=== PATIENT | female | born 1980 | race Caucasian/White ===

== ENCOUNTER 2023-07-26 15:25 | Emergency (ER) | payer BC, SELFPAY ==
[2023-07-26 15:32] VITALS: BP 147/90; PULSE 108; RESP 18; TEMP 37.1; O2SAT 100; BMI 28.3
--- NOTE | 2023-07-26 15:46 | ED_ITS ---
HPI - General Adult General Chief complaint: Fever Stated complaint: FEVER/PAIN Time Seen by Provider: 07/26/23 15:31 Source: patient Mode of arrival: walk-in History of Present Illness HPI narrative: patient is a 43-year-old female presents to the emergency department for the evaluation of pain and swelling to the right medial buttock. Patient states for the last week she has had intermittent fevers. She has had no other associated symptoms of cough, congestion, urinary symptoms or vomiting or diarrhea. She states yesterday she had a temperature of 102.0 Fahrenheit. She states several days ago she noted vaginal swelling and discharge and was treated with Monistat and Diflucan for a yeast infection. She states her symptoms are significantly better but she continues to have fevers and today while sitting, she noted pain in the buttock associated with redness and firmness, her telemedicine physician referred her to the Emergency Room for possible cellulitis. She is not concerned for . Related Data Previous Rx's Medication Instructions Recorded ciprofloxacin HCl 500 mg tablet 500 mg PO BID #20 tabs 07/26/23 (Cipro) fluconazole 150 mg tablet 150 mg PO QWEEK 1 day #2 tabs 07/26/23 metronidazole 500 mg tablet 500 mg PO Q12H 10 days #20 tabs 07/26/23 ondansetron 4 mg disintegrating 4 mg PO Q6H PRN nausea and 07/26/23 tablet vomiting #12 tabs Allergies Allergy/AdvReac Type Severity Reaction Status Date / Time Sulfa (Sulfonamide Allergy Severe Rash Verified 07/26/23 15:37 Antibiotics) Review of Systems ROS Constitutional Denies: fever or chills Ears, nose, mouth, and throat Denies: throat pain Cardiovascular Denies: chest pain Respiratory Denies: shortness of breath or cough Gastrointestinal Denies: abdominal pain, nausea, vomiting or diarrhea Genitourinary Denies: painful urination Musculoskeletal Denies: back pain Integumentary/Breast Reports: redness, skin pain, skin tenderness and skin swelling; Denies: rash Neurological Denies: headache Hematologic/Lymphatic Denies: easy bruising Exam Narrative Exam Narrative: Gen.: Awake, alert, in no distress Head: Normocephalic, atraumatic ENT: Moist mucous membranes Respiratory: No respiratory distress Extremities: Moves extremities equally rectal exam performed with Ashley Olmos RN at bedside throughout the duration of the exam. Patient with white cream, Monistat in the buttock area and right medial buttock is indurated and erythematous. There is no visible perirectal or rectal abscess. Right medial buttock with multiple small breaks in the skin although there is no deep wound or active drainage. Psych: Normal mood and affect Neuro: No focal neuro deficit Skin: Warm, dry, intact Constitutional Vital Signs, click to edit/add: Last Vital Signs Temp 98.8 F 07/26/23 15:32 Pulse 108 H 07/26/23 15:32 Resp 18 07/26/23 15:32 BP 147/90 H 07/26/23 15:32 Pulse Ox 100 07/26/23 15:32 O2 Del Method Room Air 07/26/23 15:32 Course Vital Signs Vital signs: Vital Signs Temperature 98.8 F 07/26/23 15:32 Pulse Rate 108 H 07/26/23 15:32 Respiratory Rate 18 07/26/23 15:32 Blood Pressure 147/90 H 07/26/23 15:32 Pulse Oximetry 100 07/26/23 15:32 Oxygen Delivery Method Room Air 07/26/23 15:32 Temperature 98.8 F 07/26/23 15:32 Pulse Rate 108 H 07/26/23 15:32 Respiratory Rate 18 07/26/23 15:32 Blood Pressure 147/90 H 07/26/23 15:32 Pulse Oximetry 100 07/26/23 15:32 Oxygen Delivery Method Room Air 07/26/23 15:32 Medical Decision Making [facility] Narrative Medical decision making narrative: patient with stable vital signs in the Emergency Room, exam of the buttocks is consistent with early cellulitis although there is no visible abscess or active drainage. Lab studies are unremarkable, no evidence of sepsis, negative urine specimen, negative Covid and influenza screens. Patient with no other focal medical complaints in the Emergency Room. She'll be treated with antibiotics and Diflucan for home. follow-up with PCP and return to the Emergency Room if symptoms change or worsen. Medical Records Medical records reviewed: Yes I reviewed the patient's medical records Lab Data Lab results reviewed: Yes I reviewed the patient's lab results Labs: Lab Results 07/26/23 07/26/23 07/26/23 Range/Units 15:46 16:01 16:38 WBC 10.8 (4.0-11.0) 10^3/uL RBC 3.91 L (4.20-5.40) 10^6/uL Hgb 11.3 L (12.0-16.0) g/dL Hct 35.1 L (36.0-48.0) % MCV 89.8 (81.0-99.0) fL MCH 28.9 (26.7-34.0) pg MCHC 32.2 (29.9-35.2) g/dL RDW 12.3 (11.0-15.0) % Plt Count 394 (150-450) 10^3/uL MPV 9.5 (9.5-13.5) fL Neut % (Auto) 82.4 H (43.0-75.0) % Lymph % (Auto) 10.6 L (20.5-60.0) % Coal % (Auto) 5.5 (1.7-12.0) % Eos % (Auto) 0.4 L (0.9-7.0) % Baso % (Auto) 0.5 (0.2-2.0) % Neut # (Auto) 8.9 H (1.4-6.5) 10^3/uL Lymph # (Auto) 1.2 (1.2-3.8) 10^3/uL Coal # (Auto) 0.6 (0.3-0.8) 10^3/uL Eos # (Auto) 0.0 (0.0-0.7) 10^3/uL Baso # (Auto) 0.1 (0.0-0.1) 10^3/uL Abs Immat Gran (auto) 0.06 H (0.00-0.03) 10^3/uL Imm/Tot Granulo (auto) 0.6 H (0.0-0.5) % Sodium 137 (136-145) mmol/L Potassium 3.4 L (3.5-5.1) mmol/L Chloride 100 (98-107) mmol/L Carbon Dioxide 27.0 (21.0-32.0) mmol/L Anion Gap 13.4 BUN 8.0 (7.0-18.0) mg/dL Creatinine 0.97 (0.55-1.02) mg/dL Est GFR ( Amer) >60 (>=60) Est GFR (Non-Af Amer) >60 (>=60) BUN/Creatinine Ratio 8.2 Glucose 105 (74-106) mg/dL Lactate 0.8 (0.4-2.0) mmol/L Calcium 9.2 (8.5-10.1) mg/dL Total Bilirubin 0.3 (0.2-1.0) mg/dL AST <5 L (15-37) U/L ALT 12 L (14-59) U/L Alkaline Phosphatase 49 (46-116) U/L Total Protein 7.4 (6.4-8.2) g/dL Albumin 3.1 L (3.4-5.0) g/dL Globulin 4.3 g/dL Albumin/Globulin Ratio 0.7 Urine Color Lt. yellow (YELLOW) Urine Clarity Clear (CLEAR) Urine pH 6.0 (5.0-9.0) Ur Specific [place] <=1.005 A (1.005-1.025) Urine Protein Negative (NEG/TRACE) mg/dL Urine Glucose (UA) Negative (NEGATIVE) mg/dL Urine Ketones Negative (NEGATIVE) mg/dL Urine Occult Blood Small A (NEGATIVE) Urine Nitrite Negative (NEGATIVE) Urine Bilirubin Negative (NEGATIVE) Urine Urobilinogen 1.0 (0.2-1.0) EU/dL Ur Leukocyte Esterase Small A (NEGATIVE) Urine RBC None seen (0-2) #/HPF Urine WBC None seen (NONE SEEN) #/HPF Ur Squamous Epith Cells Rare (NONE/RARE) #/LPF Urine Crystals None seen (None Seen) #/HPF Urine Bacteria None seen (NONE SEEN) #/HPF Urine Casts None seen (NONE SEEN) #/LPF Urine Mucus None seen (NONE SEEN) Ur Culture Indicated? No SARS-CoV-2 (PCR) Negative (NEGATIVE) Influenza Type A Ag Negative Influenza Type B Ag Negative Discharge Plan Discharge Chief Complaint: Fever Clinical Impression: Cellulitis Patient Disposition: Home, Self-Care Time of Disposition Decision: 17:13 Condition: Good Prescriptions / Home Meds: New metronidazole 500 mg tablet 500 mg PO Q12H 10 Days Qty: 20 0RF ciprofloxacin HCl [Cipro] 500 mg tablet 500 mg PO BID Qty: 20 0RF ondansetron 4 mg tablet,disintegrating 4 mg PO Q6H PRN (Reason: nausea and vomiting) Qty: 12 0RF fluconazole 150 mg tablet 150 mg PO QWEEK 1 Days Qty: 2 0RF Rx Instructions: To be taken at the beginning and end of antibiotic course Instructions: Cellulitis (ED), Warm Compress or Soak (ED) Stand Alone Forms: Portal Instructions Referrals: RUTH NUÑEZ [Primary Care Provider] - 1 week Discharge Date/Time: 07/26/23 17:31
[2023-07-26 16:12] LABS: Basophils Absolute Auto 0.1 10^3/uL (0.0-0.1); Basophils Percent Auto 0.5 % (0.2-2.0); Eosinophils Percent Auto 0.4 % (0.9-7.0); Hematocrit 35.1 % (36.0-48.0); Hemoglobin 11.3 g/dL (12.0-16.0); Immature Granulocytes Abs Auto 0.06 10^3/uL (0.00-0.03); Immature Granulocytes Pct Auto 0.6 % (0.0-0.5); Lymphocytes Absolute Auto 1.2 10^3/uL (1.2-3.8); Lymphocytes Percent Auto 10.6 % (20.5-60.0); Mean Corpuscular HGB Conc 32.2 g/dL (29.9-35.2); Mean Corpuscular Hemoglobin 28.9 pg (26.7-34.0); Mean Corpuscular Volume 89.8 fL (81.0-99.0); Mean Platelet Volume 9.5 fL (9.5-13.5); Monocytes Absolute Auto 0.6 10^3/uL (0.3-0.8); Monocytes Percent Auto 5.5 % (1.7-12.0); Neutrophils Absolute Auto 8.9 10^3/uL (1.4-6.5); Neutrophils Percent Auto 82.4 % (43.0-75.0); Platelet Count 394 10^3/uL (150-450); Red Blood Count 3.91 10^6/uL (4.20-5.40); Red Cell Distribution Width 12.3 % (11.0-15.0); White Blood Count 10.8 10^3/uL (4.0-11.0)
[2023-07-26 16:15] LABS: Influenza Virus A Antigen Negative; Influenza Virus B Antigen Negative; Internal Control Within Normal Limits; SARS-CoV-2 Ag NEGATIVE (NEGATIVE)
[2023-07-26 16:23] LABS: Alanine Aminotransferase 12 U/L (14-59); Albumin Globulin Ratio 0.7; Albumin Level 3.1 g/dL (3.4-5.0); Alkaline Phosphatase 49 U/L (46-116); Anion Gap 13.4; Aspartate Amino Transferase <5 U/L (15-37); BUN Creatinine Ratio 8.2; Bilirubin Total 0.3 mg/dL (0.2-1.0); Calcium 9.2 mg/dL (8.5-10.1); Chloride 100 mmol/L (98-107); Estimated GFR (African America >60 (>=60); Estimated GFR (Non-African Ame >60 (>=60); Globulin 4.3 g/dL; Glucose 105 mg/dL (74-106); Potassium 3.4 mmol/L (3.5-5.1); Sodium 137 mmol/L (136-145); Total Protein 7.4 g/dL (6.4-8.2)
[2023-07-26 16:33] LABS: Lactate/Lactic Acid 0.8 mmol/L (0.4-2.0)
[2023-07-26] MEDS: POTASSIUM CHLORIDE 10 MEQ ER TABLET 40 MEQ PO (16:36)
[2023-07-26 17:02] LABS: Bilirubin Urine NEGATIVE (NEGATIVE); Blood Urine SMALL (NEGATIVE); Clarity Urine CLEAR (CLEAR); Color Urine LT. YELLOW (YELLOW); Glucose Urine UA NEGATIVE (NEGATIVE); Ketones Urine NEGATIVE (NEGATIVE); Leukocyte Esterase Urine SMALL (NEGATIVE); Nitrite Urine NEGATIVE (NEGATIVE); Protein Urine NEGATIVE (NEG/TRACE); Specific Gravity Urine <=1.005 (1.005-1.025); Urine Microscopic Indicated YES
[2023-07-26 17:07] LABS: Bacteria Urine NONE SEEN #/HPF (NONE SEEN); Cast Seen? NONE SEEN #/LPF (NONE SEEN); Crystals Seen? None Seen #/HPF (None Seen); Mucus Urine NONE SEEN (NONE SEEN); RBC Urine NONE SEEN #/HPF (0-2); Squamous Epithelial Cell Urine RARE #/LPF (NONE/RARE); WBC Urine NONE SEEN #/HPF (NONE SEEN)
[2023-07-26 17:08] LABS: Urine Culture Indicated NO
[2023-07-27 15:16] LABS: SARS-CoV-2 NAA NOT DETECTED (NOT DETECTE)
== END 2023-07-26 17:31 | disposition home or self-care (01) ==
PROVIDERS: Physician Assistant; Emergency Provider Emergency Medicine; PCP Physician Assistant
DX: L03.317 Cellulitis of buttock (principal)
CPT/HCPCS: 36415; 80053; 81001; 83605; 85025; 87635; 87804; 87811; 99283